=== PATIENT | male | born 2000 | race Two or more races ===

== ENCOUNTER 2020-09-12 08:21 | Emergency (ER) | payer MEDICAID ==
[2020-09-12] MEDS ORDERED: Bacitracin Oint 1 GM U/D Packet TOP ONE (08:49)
--- NOTE | 2020-09-12 09:28 | EDM.PDOC ---
ED HPI GENERAL MEDICAL PROBLEM - General Chief Complaint: Laceration Stated Complaint: RIGHT HAND SPLIT OPEN Time Seen by Provider: 09/12/20 09:00 Source of Information: Reports: Patient History Limitations: Reports: No Limitations - History of Present Illness INITIAL COMMENTS - FREE TEXT/NARRATIVE: 20-year-old male with a laceration to his right hand. He "punched a chair" belén taining a laceration over the dorsal MP joint of the right hand fifth finger. He can move his fingers without difficulty, no distal numbness but he has a fairly significant irregular laceration over the knuckle. Onset: Sudden Duration: Hour(s): (Within the last hour) Location: Reports: Upper Extremity, Right Associated Symptoms: Reports: No Other Symptoms Right Hand Pain Score (Numeric/FACES): 6 - Related Data Allergies Allergy/AdvReac Type Severity Reaction Status Date / Time No Known Allergies Allergy Verified 09/12/20 08:47 Home Meds: Home Meds cephALEXin [Keflex] 500 mg PO Q8H 7 Days #21 cap 09/12/20 [Rx] Past Medical History - Past Health History Medical/Surgical History: Denies Medical/Surgical History - Infectious Disease History Infectious Disease History: Reports: None Social & Family History - Tobacco Use Tobacco Use Status *Q: Never Tobacco User - Caffeine Use Caffeine Use: Reports: Coffee Caffeine Use Comment: rare - Recreational Drug Use Recreational Drug Use: No ED ROS GENERAL - Review of Systems Review Of Systems: See Below Constitutional: Denies: Fever, Chills Respiratory: Reports: No Symptoms Cardiovascular: Reports: No Symptoms GI/Abdominal: Reports: No Symptoms Neurological: Denies: Paresthesia (No numbness of the finger) Psychiatric: Reports: No Symptoms ED EXAM, SKIN/RASH Exam: See Below Exam Limited By: No Limitations General Appearance: Alert, No Apparent Distress Head: Atraumatic Respiratory/Chest: Lungs Clear Cardiovascular: Regular Rate, Rhythm Extremities: Other (Remainder of exam is limited to the right hand. Patient has a 4 cm curved somewhat irregular laceration around the MP joint dorsally on the right hand. After anesthesia, it was explored more thoroughly and the wound is fairly deep extending to the transverse fibers of the knuckle. The ligaments are intact) Neurological: Alert, Oriented Course - Vital Signs Last Recorded V/S: Last Vital Signs Temp 97.7 F 09/12/20 08:45 Pulse 83 09/12/20 08:45 Resp 16 09/12/20 08:45 BP 121/79 09/12/20 08:45 Pulse Ox 100 09/12/20 08:45 - Orders/Labs/Meds Meds: Medications Discontinued Medications Generic Name Dose Route Start Last Admin Trade Name Venecia PRN Reason Stop Dose Admin Bacitracin 1 dose 09/12/20 08:49 09/12/20 08:53 Bacitracin Oint 1 Gm TOP 09/12/20 08:50 1 dose ONETIME ONE Administration Lidocaine HCl 5 ml 09/12/20 08:49 09/12/20 08:53 Xylocaine-Mpf 1% INJECT 09/12/20 08:50 5 ml ONETIME ONE Administration - Re-Assessments/Exams Free Text/Narrative Re-Assessment/Exam: 09/12/20 09:27 The wound was anesthetized with 1% lidocaine and flushed thoroughly with saline. Brisk venous bleeding was present which was controlled in part by four 5-0 Vicryl sutures placed subcutaneously. Ten 4-0 Ethilon sutures were then used to close the laceration. Topical bacitracin and pressure dressings were applied and the patient can have the sutures removed in 9 days. Increase activity as tolerated, and he will be placed on cephalexin 500 3 times a day for 7 days because of the penetration of the fibrous structure of the knuckle. Departure - Departure Time of Disposition: 09:31 Disposition: Home, Self-Care 01 Clinical Impression: Laceration of right hand with complication Qualifiers: Encounter type: initial encounter Qualified Code(s): S61.411A - Laceration without foreign body of right hand, initial encounter - Discharge Information Prescriptions: cephALEXin [Keflex] 500 mg PO Q8H 7 Days #21 cap Instructions: Laceration Care, Adult Referrals: PCP,None [Primary Care Provider] - Forms: ED Department Discharge Care Plan Goals: Keep wound covered and clean while healing and increase activity as tolerated. Sutures can be removed in 9 days, Monday after next. Recheck sooner if concerns of infection or not healing satisfactorily, take antibiotic for 1 week as prescribed. Ibuprofen will help with any discomfort. Sepsis Event Note (ED) - Evaluation Sepsis Screening Result: No Definite Risk - Focused Exam Vital Signs: Vital Signs Temp Pulse Resp BP Pulse Ox 09/12/20 08:45 97.7 F 83 16 121/79 100
== END 2020-09-12 09:32 | disposition home or self-care (01) ==
LOC: JP.ED 08:21
DX: S61.411A Laceration without foreign body of right hand, initial encounter (principal); W22.8XXA Striking against or struck by other objects, initial encounter
CPT/HCPCS: 12042; 99282; J2001; 99283

== ENCOUNTER 2022-05-29 00:10 | Emergency (ER) | payer MEDICAID ==
[2022-05-29 01:10] LABS: ESTIMATED GFR 48 mL/min (>60)
== END 2022-05-29 10:44 ==
LOC: JP.ED 00:10
DX: T45.0X2A Poisoning by antiallergic and antiemetic drugs, intentional self-harm, initial encounter (principal); F32.A Depression, unspecified; Z20.822 Contact with and (suspected) exposure to COVID-19
CPT/HCPCS: 36415; 80053; 80143; 80179; 80305-QW; 80307; 81001; 85025; 93005; 93010; 99285; U0002